=== PATIENT | male | born 1975 | race Caucasian/White ===

== ENCOUNTER 2023-01-17 11:58 | Inpatient (IN) | payer BC, OTHER ==
[2023-01-17 12:29] VITALS: BMI 22.4
[2023-01-17] MEDS ORDERED: ACETAMINOPHEN 325 MG TABLET (FP) PO PRN (12:52)
[2023-01-17] MEDS ORDERED: IBUPROFEN 400 MG TABLET (FP) PO PRN (12:52)
[2023-01-17] MEDS ORDERED: DICYCLOMINE HCL 10 MG CAPSULE PO PRN (12:52)
[2023-01-17] MEDS ORDERED: LOPERAMIDE HCL 2 MG CAPSULE PO PRN (12:52)
[2023-01-17] MEDS ORDERED: BENZOCAINE/MENTHOL (CHLORASEPTIC ) LOZENGE MM PRN (12:52)
[2023-01-17] MEDS ORDERED: NALOXONE HCL (KLOXXADO) 8 MG SPRAY NS PRN (12:52)
[2023-01-17] MEDS ORDERED: MAGNESIUM HYDROX 2400MG/30ML ORAL SUSPENSION 30 ML CUP PO PRN (12:52)
[2023-01-17] MEDS ORDERED: POLYETHYLENE GLYCOL (HEALTHYLAX) 3350 17 GM PACKET PO PRN (12:52)
[2023-01-17] MEDS ORDERED: BISMUTH SUBSALICYLATE 524 MG/30 ML PO PRN (12:52)
[2023-01-17] MEDS ORDERED: BUPRENORPHINE HCL 150 MCG, BUPRENORPHINE HCL 75 MCG BC PRN (12:52)
[2023-01-17] MEDS ORDERED: NALOXONE HCL 0.4 MG/ML VIAL IM PRN (12:52)
[2023-01-17] MEDS ORDERED: BENZONATATE 200 MG CAPSULE PO PRN (12:52)
[2023-01-17] MEDS ORDERED: IBUPROFEN 600 MG TABLET (FP) PO PRN (12:52)
[2023-01-17] MEDS ORDERED: guaiFENesin 600 MG TABLET.ER (FP) PO PRN (12:52)
[2023-01-17] MEDS ORDERED: BUPRENORPHINE HCL 75 MCG FILM BC ONE (13:18)
[2023-01-17] MEDS ORDERED: cloNIDine HCL 0.1 MG TABLET ONE (13:18)
[2023-01-17] MEDS ORDERED: BUPRENORPHINE HCL 150 MCG FILM BC ONE (13:18)
[2023-01-17] MEDS ORDERED: ONDANSETRON *ODT* 4 MG TABLET ONE (13:26)
[2023-01-17] MEDS ORDERED: PRENATAL VITAMINS W/ FOLIC ACID TABLET (FP) PO ONE (13:26)
[2023-01-17] MEDS ORDERED: NICOTINE 14 MG/24 HOURS TOPICAL PATCH TD ONE (13:26)
[2023-01-17] MEDS: NICOTINE 14 MG/24 HOURS TOPICAL PATCH TD SCH (13:30)
[2023-01-17] MEDS ORDERED: BUPRENORPHINE HCL 150 MCG, BUPRENORPHINE HCL 75 MCG BC ONE (13:30)
[2023-01-17] MEDS ORDERED: cloNIDine HCL 0.1 MG TABLET PO ONE (13:30)
[2023-01-17] MEDS: ONDANSETRON *ODT* 4 MG TABLET SL PRN (13:31)
[2023-01-17] MEDS: PRENATAL VITAMINS W/ FOLIC ACID TABLET (FP) PO SCH (13:31)
[2023-01-17] MEDS: METHOCARBAMOL 500 MG TABLET PO PRN (16:00)
[2023-01-17 16:14] LABS: HEMATOCRIT 44.4 % (35.4-49); HEMOGLOBIN 14.5 GM/dL (11.7-16.9); MCH 31.1 pg (25.7-33.7); MCHC 32.7 g/dl (32.0-35.9); MEAN CELL VOLUME 95.1 fl (80-96); MEAN PLT VOLUME 9.5 fl (7.5-11.1); PLATELET COUNT 330 10^3/uL (134-434); RBC 4.67 M/mm3 (4.00-5.60); RDW 12.9 % (11.9-15.9); WHITE BLOOD COUNT 12.8 K/mm3 (4.0-10.0)
[2023-01-17 16:19] LABS: POTASSIUM 4.7 mmol/L (3.5-5.1)
[2023-01-17 16:21] LABS: ALBUMIN 3.7 g/dl (3.4-5.0); CALCIUM 9.4 mg/dL (8.5-10.1)
[2023-01-17 16:22] LABS: BLOOD UREA NITROGEN 10.8 mg/dL (7-18)
[2023-01-17 16:26] LABS: BILIRUBIN,TOTAL 0.8 mg/dL (0.2-1); TOT PROT 7.2 g/dl (6.4-8.2)
[2023-01-17] MEDS: MAG HYDROX/AL HYDROX/SIMETH 30 ML UNIT-DOSE CUP PO PRN (17:32)
[2023-01-17] MEDS: cloNIDine HCL 0.1 MG TABLET PO PRN (19:02)
[2023-01-17] MEDS: diazePAM 5 MG TABLET PO PRN (19:03)
[2023-01-17] MEDS ORDERED: MELATONIN 5 MG TABLETS PO SCH (22:00)
[2023-01-17] MEDS: THIAMINE HCL 100 MG TABLET (FP) PO SCH (22:08)
[2023-01-18] MEDS ORDERED: BUPRENORPHINE HCL 150 MCG, BUPRENORPHINE HCL 75 MCG BC PRN
[2023-01-18] MEDS: diazePAM 5 MG TABLET PO PRN ×3 (00:36→19:27)
[2023-01-18] MEDS: ONDANSETRON *ODT* 4 MG TABLET SL PRN ×2 (04:42→19:00)
[2023-01-18] MEDS: BUPRENORPHINE HCL 150 MCG, BUPRENORPHINE HCL 75 MCG BC SCH ×2 (05:16→17:29)
[2023-01-18] MEDS: hydrOXYzine PAMOATE 25 MG CAPSULE (FP) PO PRN ×2 (05:20→15:54)
[2023-01-18] MEDS: METHOCARBAMOL 500 MG TABLET PO PRN (05:20)
[2023-01-18] MEDS: levETIRAcetam 250 MG TABLET PO SCH ×2 (10:22→22:03)
[2023-01-18] MEDS: amLODIPine BESYLATE 5 MG TABLET (FP) PO SCH (10:22)
[2023-01-18] MEDS: NICOTINE 14 MG/24 HOURS TOPICAL PATCH TD SCH (10:22)
[2023-01-18] MEDS: PRENATAL VITAMINS W/ FOLIC ACID TABLET (FP) PO SCH (10:28)
[2023-01-18] MEDS: MAG HYDROX/AL HYDROX/SIMETH 30 ML UNIT-DOSE CUP PO PRN (19:27)
[2023-01-18] MEDS: NICOTINE POLACRILEX 2 MG GUM BUC PRN ×2 (19:29→22:05)
[2023-01-18] MEDS ORDERED: SUVOREXANT 10 MG TABLET PO PRN (22:00)
[2023-01-18] MEDS: THIAMINE HCL 100 MG TABLET (FP) PO SCH (22:03)
[2023-01-18] MEDS: cloNIDine HCL 0.1 MG TABLET PO PRN (22:03)
[2023-01-19] MEDS: hydrOXYzine PAMOATE 25 MG CAPSULE (FP) PO PRN (03:10)
[2023-01-19] MEDS: diazePAM 5 MG TABLET PO PRN ×2 (03:10→10:11)
[2023-01-19] MEDS: ONDANSETRON *ODT* 4 MG TABLET SL PRN ×2 (03:12→18:34)
[2023-01-19] MEDS: BUPRENORPHINE HCL 450 MCG FILM BC SCH ×2 (05:41→17:22)
[2023-01-19] MEDS: NICOTINE POLACRILEX 2 MG GUM BUC PRN ×2 (07:16→10:14)
[2023-01-19] MEDS: levETIRAcetam 250 MG TABLET PO SCH ×2 (10:10→22:09)
[2023-01-19] MEDS: amLODIPine BESYLATE 5 MG TABLET (FP) PO SCH (10:10)
[2023-01-19] MEDS: NICOTINE 14 MG/24 HOURS TOPICAL PATCH TD SCH (10:10)
[2023-01-19] MEDS: PRENATAL VITAMINS W/ FOLIC ACID TABLET (FP) PO SCH (10:10)
[2023-01-19] MEDS: METHOCARBAMOL 500 MG TABLET PO PRN ×2 (10:13→18:33)
[2023-01-19] MEDS: MAG HYDROX/AL HYDROX/SIMETH 30 ML UNIT-DOSE CUP PO PRN (17:49)
[2023-01-19] MEDS: cloNIDine HCL 0.1 MG TABLET PO PRN (18:33)
[2023-01-19 18:37] VITALS: RESP 18
[2023-01-19] MEDS: THIAMINE HCL 100 MG TABLET (FP) PO SCH (22:09)
[2023-01-20] MEDS: cloNIDine HCL 0.1 MG TABLET PO PRN (02:32)
[2023-01-20] MEDS: MAG HYDROX/AL HYDROX/SIMETH 30 ML UNIT-DOSE CUP PO PRN (05:12)
[2023-01-20] MEDS ORDERED: BUPRENORPHINE/NALOXONE 4 MG/1 MG FILM PACKET SL SCH (06:00)
[2023-01-20] MEDS: NICOTINE POLACRILEX 2 MG GUM BUC PRN ×2 (07:21→10:26)
[2023-01-20 09:16] VITALS: BP 112/64; PULSE 58; TEMP 97.8
[2023-01-20] MEDS ORDERED: amLODIPine BESYLATE 10 MG TABLET (FP) PO SCH (10:00)
[2023-01-20] MEDS: levETIRAcetam 250 MG TABLET PO SCH (10:25)
[2023-01-20] MEDS: PRENATAL VITAMINS W/ FOLIC ACID TABLET (FP) PO SCH (10:25)
[2023-01-20] MEDS: NICOTINE 14 MG/24 HOURS TOPICAL PATCH TD SCH (10:26)
[2023-01-21] MEDS ORDERED: BUPRENORPHINE/NALOXONE 8 MG/2 MG FILM PACKET SL ONE (06:00)
== END 2023-01-20 10:40 | disposition home or self-care (01) | DRG 897 ==
LOC: YASAS 11:58 → Y6N 13:43
PROVIDERS: ADMIT Allergy & Immunology; ATTEND Surgery
PROC: HZ2ZZZZ Detoxification Services for Substance Abuse Treatment (ICD-10-PCS; principal; 2023-01-17)
DX: F11.23 Opioid dependence with withdrawal (principal); F19.282 Other psychoactive substance dependence with psychoactive substance-induced sleep disorder; F17.210 Nicotine dependence, cigarettes, uncomplicated; F43.23 Adjustment disorder with mixed anxiety and depressed mood; E86.0 Dehydration; G40.909 Epilepsy, unspecified, not intractable, without status epilepticus
CPT/HCPCS: 26055; 36415; 80053; 85027; 86780; 87635; 87811; 93005; 93010; Q0162